=== PATIENT | female | born 1970 | race Caucasian/White ===

== ENCOUNTER 2016-08-06 01:18 | Emergency (ER) | payer SELFPAY ==
[~2016-08-06] VITALS: Ht 152.4 cm; Wt 50.0 kg
[~2016-08-06 01:18] MED LIST: ONDA-24 PO
[2016-08-06 01:33] VITALS: BP 131/80; RESP 16; O2SAT 99
--- NOTE | 2016-08-06 01:39 | ED.REPORT ---
HPI-Ear Pain/Problem/FB Date of Service Aug 06, 2016 ED Provider: Yuan Castillo MD Pt is a healthy 46 year old female who presents to the ED with concerns for left sided ear pain. Pt reports that she had previously had tubes placed in her ears, but they have been removed. She reports that she was blowing her nose and she felt an extreme pain in her ear. She reports that she is additionally experiencing a sore throat, but has no other complaints. Nursing Notes Stated Complaint: EAR PAIN,SORE THROAT Chief Complaint: ENT & Mouth Nursing Notes Reviewed: Yes Allergies: Coded Allergies: No Known Allergies (Verified Allergy, Unknown, 10/16/13) Scheduled Amoxicillin (Amoxicillin) 500 Mg Tablet 500 MG PO TID Scheduled PRN Ibuprofen (Ibuprofen) 800 Mg Tablet 800 MG PO TID PRN PRN For Pain Miscellaneous Medications Ondansetron (Zofran) 4 Tab/Pack Tab.rapdis 4 TAB PO General Time Seen by MD: 01:38 Chief Complaint Ear problem left Hx Obtained From: Patient Arrived By: Walk-in Onset Occurred: 5 - 8 hours ago Symptom Duration: Since onset Quality: Painful Severity: Current: Mild Severity: Maximum: Moderate Similar Sx Previous: Yes Past Medical History Past Medical History Healthy Ambulatory Status Independent Review of Systems Constitutional: Denies: Chills, Fever, Malaise, Weakness - generalized Ears / Nose / Throat: Reports: Earache left, Sore throat Complete sys rev & neg: except as marked. Physical Exam Initial Vital Signs Vital Signs (First) Date Time Temp Pulse Resp B/P Pulse Ox O2 Delivery O2 Flow Rate FiO2 08/06/16 01:33 36.8 90 16 131/80 99 Room Air Initial VS: Reviewed Head / Eyes: Atraumatic, Normocephalic, PERRL Neck: Supple, Non-tender, Full range of motion Respiratory: Breath sounds normal, Clear to auscultation, No respiratory distress Cardiovascular: Regular rate & rhythm, Heart sounds normal, Intact distal pulses Skin: Warm, Dry, No cyanosis Neurologic: Alert, Oriented, Nonfocal General/Constitutional: Awake, Alert, Well appearing, Well developed ENT: Atraumatic, Airway patent Left TM appears largely infected No perforation identified Re-Eval/Medical Decision Med Decision/Clinical Course Left acute otitis media. Amoxicillin 10 days. Follow-up with primary doctor. Return precautions given. Source of Hx: Old records Re-Evaluation/Progress : Time of Eval: 01:45 Re-Evaluation/Progress Note: Pt is informed of her diagnosis and the plan to discharge her at this time. She understands and agrees, all questions are addressed. Counseled Regarding: Diagnosis, When/why to return to ED Discharge & Departure Primary Impression: Otitis externa Otitis externa type: unspecified type Laterality: left Chronicity: acute Qualified Code: H60.502 - Unspecified acute noninfective otitis externa, left ear Disposition: Home Discharge Condition All VS Reviewed: Yes Condition: Stable Patient Instructions: Otitis Media (ED) Additional Instructions: It appears you have an ear infection. Take the antibiotic (Amoxicillin) as prescribed. Follow up with your primary care provider later this week if you are experiencing continued symptoms. Take the extra strength ibuprofen for the pain. Return to the emergency department with any new or worsening symptoms. Referrals: [facility] [place] Attestation Portions of this note were transcribed by Dr. Burns. I, Andressa Coronel personally performed the history, physical exam and medical decision-making; I reviewed and confirmed the accuracy of the information in the transcribed note. Signed by: Brandon Ramos, 08/05 01:55 copies to: [facility] Yuan Castillo MD Aug 06, 2016 01:39 OTIS CORONEL Aug 06, 2016 01:47
[2016-08-06] MEDS ORDERED: IBUP800T28 PO (01:46)
[2016-08-06] MEDS ORDERED: AMOX500T2 PO (01:46)
[2016-08-06 01:57] VITALS: BP 128/80; PULSE 68; RESP 17; O2SAT 98
== END 2016-08-06 01:48 | disposition home or self-care (01) ==
LOC: SED 01:18
DX: H60.502 Unspecified acute noninfective otitis externa, left ear (principal)